=== PATIENT | female | born 1940 | race Two or more races ===

== ENCOUNTER 2018-11-03 23:41 | Emergency (ER) | payer OTHER ==
[~2018-11-03] VITALS: Ht 170.2 cm; Wt 85.7 kg
--- NOTE | 2018-11-03 23:58 | NUR ---
DAVID FROM HOME. TO ER BED 10. AAOX4. NAD NOTED, BREATHING EVEN AND UNLABORED. AMBULATORY. C/O L KNEE PAIN, L ARM PAIN AND L RIB AREA PAIN. S/P GLF. PT REPORTS HAVING LEG SPASM RECENTLY AND HER LEG JUST GAVE AND FELL. PT FELL ON HER LEFT SIDE. PT REPORTS HITTING HER HEAD ON A PLANTER ON HER LEFT PARIETAL AREA, BUMP NOTED. ABRASIONS NOTED ON HER L KNEE AND L ELBOW, ROM INTACT. AWAITING MD FOR KIRK
--- NOTE | 2018-11-04 00:04 | NUR ---
PT REPORT USING WALKER RECENTLY BECAUSE OF THE SPASM SHES BEEN HAVING. EMS REPORTS THAT PT WAS AMBULATORY AT SCENE.
--- NOTE | 2018-11-04 00:32 | NUR ---
PT IS AT RADIOLOGY
--- NOTE | 2018-11-04 03:16 | NUR ---
PT AMBULATED AROUND UNIT. PT AMBULATES WITH A FRONT WHEELED WALKER. PT TOLERATED AMBULATING WITHOUT ASSIST.
--- NOTE | 2018-11-04 04:00 | NUR ---
CALL FROM [facility]. ETA FOR AMBULANCE 1 HR
--- NOTE | 2018-11-04 05:19 | NUR ---
[facility] AMBULANCE 73 AT BEDSIDE FOR PT TRANSPORT BACK TO HER HOME. PT IS INSTABLE CONDITION FOR TRANPORT. NAD NOTED. ACI GIVEN TO PT.
[2018-11-04 05:20] VITALS: BP 127/75
== END 2018-11-04 05:21 | disposition home or self-care (01) ==
LOC: ER 23:43
DX: S00.03XA Contusion of scalp, initial encounter (principal); S50.312A Abrasion of left elbow, initial encounter; R07.81 Pleurodynia; W18.39XA Other fall on same level, initial encounter; Y93.89 Activity, other specified; Y92.89 Other specified places as the place of occurrence of the external cause; Y99.8 Other external cause status
CPT/HCPCS: 70450-TC; 71100-TC; 73080-TC